=== PATIENT | female | born 1975 | race Caucasian/White ===

== ENCOUNTER → 2020-10-02 | Day surgery (SDC) | payer OTHER ==
[~2020-10-02] MED LIST: NORCO 5-325 TA1 EACH PO; ONDANSETRON ODT8 MG PO; RECTICARE30 GM TOP; VITAMIN B12-FO1 EACH PO; VITAMIN D3400 UNIT PO; ZANTAC150 MG PO; ZOFRAN4 MG PO; ZYRTEC10 MG PO
[2020-10-02 08:21] LABS: HCT 41.3 % (37.0-47.0); HGB 13.4 g/dl (12.5-16.0); MCHC 32.4 g/dL (32.0-36.0); MCV 92.4 fL (78.0-100.0); MPV 8.7 fL (6.0-9.5); RBC 4.47 M/uL (4.20-5.40); RDW 12.8 % (11.5-14.0); WBC 7.4 K/uL (4.0-10.5)
[2020-10-02 08:44] LABS: ALBUMIN 3.4 g/dL (3.4-5.0); BILIRUBIN - TOTAL 0.4 mg/dL (0.2-1.0); BUN/CREAT RATIO (CALC) 18.3 RATIO; CREATININE 0.71 mg/dL (0.51-0.95); POTASSIUM 4.1 mmol/L (3.5-5.1); TOTAL PROTEIN 6.4 g/dL (6.4-8.2)
== END | disposition home or self-care (01) ==
LOC: FAS 07:18
PROVIDERS: Surgery
DX: K64.2 Third degree hemorrhoids (principal); K64.5 Perianal venous thrombosis; Z20.822 Contact with and (suspected) exposure to COVID-19; K21.9 Gastro-esophageal reflux disease without esophagitis; Z88.1 Allergy status to other antibiotic agents; Z98.890 Other specified postprocedural states; Z90.710 Acquired absence of both cervix and uterus; Z82.49 Family history of ischemic heart disease and other diseases of the circulatory system
CPT/HCPCS: 36415; 80053; J2001; J2250; J2405; J2704; J3010; J7120